=== PATIENT | female | born 1960 | race Caucasian/White ===

== ENCOUNTER → 2017-10-12 14:11 | Outpatient (CLI) | payer MEDICARE ==
[2013-11-14 08:44] VITALS: BMI 24.8
[~2017-10-12 14:11] MED LIST: BAYER CHEWABLE81 MG PO; CELEXA40 MG PO; FISH OIL 1,0001 CA1 PO; LEVOXYL50 MCG PO; MEVACOR40 MG PO; PLAVIX75 MG PO; RESTORIL15 MG PO; XANAX0.5 MG PO
== END | disposition home or self-care (01) ==
LOC: D.MAMMO 13:15
DX: Z12.31 Encounter for screening mammogram for malignant neoplasm of breast (principal)

== ENCOUNTER → 2019-01-17 08:18 | Outpatient (CLI) | payer MEDICARE ==
[2013-11-14 08:44] VITALS: BMI 24.8
== END | disposition home or self-care (01) ==
LOC: D.HCCARDIO 08:18
PROVIDERS: ATTEND Internal Medicine Cardiovascular Disease
DX: I25.119 Atherosclerotic heart disease of native coronary artery with unspecified angina pectoris (principal)

== ENCOUNTER 2019-01-25 07:39 | Outpatient (CLI) | payer MEDICARE ==
[~2019-01-25] VITALS: Ht 160 cm; Wt 59.1 kg
--- NOTE | ~2019-01-25 | HEMODYNAMI ---
PATIENT:JORI VALENTE MEDICAL RECORD: [id number] : 58 LOCATION:DTRISTEN ADMISSION DATE: 01/25/19 Generatedon:01/25/20199:47 Patient name: JORI VALENTE Patient #: [id number] SSN: : 1960 Date of study: 01/25/2019 Page: Of Hemodynamic Procedure Report Patient Data Patient Demographics Procedure consent was obtained First Name: JORI Gender: Female Last Name: AMBROSIO : 1960 [facility] Initial: KAI Age: 58 year(s) Patient #: [id number] Race: Unknown Additional ID: [id number] Contact details Address: [facility] [place] State: [place] City: [place] Zip code: [address] Past Medical History Allergies Allergen Reaction Date Comments Reported Penicillins 01/25/2019 Admission Admission Data Admission Date: 01/25/2019 Admission Time: 7:39 Height (in.): 63 BSA: 1.65 (m2) Height (cm.): 160.02 BMI: 24.27 (kg/m2) Weight (lbs.): 137 Weight (kg.): 62.14 Lab Results Lab Result Date: 01/25/2019 Lab Result Time: 0:00 Biochemistry Name Units Result Min Max BUN mg/dl 11 --(-*--)-- 7 18 Creatinine mg/dl 0.7 --(*---)-- 0.6 1.3 CBC Name Units Result Min Max Hematocrit % 41.3 -*(----)-- 42 54 Hemoglobin g/dl 14.4 --(*---)-- 13.5 17.5 Procedure Procedure Types Cath Procedure Diagnostic Procedure [facility] w/Coronaries FFR/IVUS Intra-Coronary IVUS Initial PCI Procedure Coronary Stent Coronary Stent Initial Procedure Description Procedure Date Procedure Date: 01/25/2019 Procedure Start Time: 9:28 Procedure End Time: 9:46 Procedure Staff Name Function Omid Perez MD Performing Physician Padmini Duggan RT Scrub Eliot Galvan RN Nurse Svetlana Moscoso RN Car Worker Helper Norman Helton RT Monitor Procedure Data Cath Procedure Fluoroscopy Diagnostic fluoroscopy Total fluoroscopy Time: 4.5 time: 4.5 min min Diagnostic fluoroscopy Total fluoroscopy dose: 444 dose: 444 mGy mGy Contrast Material Contrast Material Type Amount (ml) Isovue 370 73 Entry Location Entry Primary Successful Side Size Upsize Upsize Entry Closure Babcock ccessful Closure Location (Fr) 1 (Fr) 2 (Fr) Remarks Device Remarks Radial Right 6 Fr Mechanical artery Short Compression Estimated blood loss: 10 ml Diagnostic catheters Device Type Used For End Catheter Placement DIAGNOSTIC [place] 110cm 5 Procedure Fr catheter ([id number]) Procedure Complications No complications Procedure Medications Medication Administration Route Dosage 0.9% NaCl I.V. 100 ml/hr Oxygen etCO2 Nasal cannula 2 l/min Heparin Flush Bag added to field 2 bags (1000units/500ml NS) Lidocaine 2% added to field ml Radial Cocktail added to field 1 syringe (Verapamil 2mg/Nitro 400mcg/Heparin 1500units) Versed I.V. 2 mg Fentanyl I.V. 100 mcg Versed I.V. 1 mg Radial Cocktail I.A. 1 syringe (Verapamil 2mg/Nitro 400mcg/Heparin 1500units) Heparin Bolus I.V. 4000 units Hemodynamics Rest BSA: 1.65 (m2) HGB: 14.4 (g/dl) O2 Consumption: Estimated: 146.59 (ml/min) O2 Co nsumption indexed: Estimated:88.84 (ml/min/m) Heart Rate: 53 (bpm) Snapshots Pre Cath Intra NCS Post Cath Vital Signs Time Heart Resp SPO2 etCO2 NIBP Rhythm Pain Sedation Rate (ipm) (%) (mmHg) (mmHg) Status Level (bpm) 9:21:58 51 14 99 20.8 103/61(71) NSR 0 (11) 10(A) , No pain 9:26:06 56 18 99 0 89/57(77) NSR 0 (11) 10(A) , No pain 9:30:04 59 19 98 49 102/71(89) NSR 0 (11) 9(A) , No pain 9:34:05 74 19 92 37.8 105/64(80) NSR 0 (11) 9(A) , No pain 9:38:11 64 10 94 37.8 106/63(81) NSR 0 (11) 10(A) , No pain 9:42:17 65 10 96 22.2 98/62(77) NSR 0 (11) 10(A) , No pain 9:46:21 61 13 98 37.8 95/63(79) NSR 0 (11) 10(A) , No pain Medications Time Medication Route Dose Verified Delivered Reason Note s Effectiveness by by 9:22:12 0.9% NaCl I.V. 100 Eliot Eliot Per physician ml/hr Cole Galvan RN RN 9:22:22 Oxygen etCO2 2 l/min Eliot Eliot for low 02 sats Nasal Cole Galvan cannula RN RN 9:22:34 Heparin Flush added 2 bags Eliot Eliot used for Bag to Cole Galvan procedure (1000units/500ml field RN RN NS) 9:22:44 Lidocaine 2% added ml Eliot Eliot for local to Lorigan Cole anesthetic field MANJARREZ RN 9:22:57 Radial Cocktail added 1 Eliot Eliot used for (Verapamil to syringe Cole Galvan procedure 2mg/Nitro field MANJARREZ RN 400mcg/Heparin 1500units) 9:24:44 Versed I.V. 2 mg Eliot Eliot for sedation Cole Galvan RN RN 9:24:52 Fentanyl I.V. 100 mcg Eliot Eliot for sedation Cole Galvan RN RN 9:26:31 Versed I.V. 1 mg Eliot Eliot for sedation Cole Galvan RN RN 9:30:15 Radial Cocktail I.A. 1 Eliot Omid for (Verapamil syringe Cole Perez MD vasodilation 2mg/Nitro RN 400mcg/Heparin 1500units) 9:36:05 Heparin Bolus I.V. 4000 Eliot Eliot for units Cole Galvan anticoagulation RN hog driver Log Time Note 8:55:36 Eliot Galvan RN sent for patient. Start room use. 9:01:06 Signed procedure consent form obtained from patient. 9:01:08 Diagnostic Cath status Elective 9:01:09 Time tracking: Regular hours (M-F 7:00 - 5:00) 9:01:13 Plan of Care:Hemodynamics will remain stable., Cardiac rhythm will remain stable., Comfort level will be maintained., Respiratory function will remain adequate., Patient/ family verbilizes understanding of procedure., Procedure tolerated without complication., Recovers from procedure without complications.. 9:03:17 Patient Height : 63 inches 9:03:21 Patient Weight : 137 lbs 9:05:17 H&P Date Dictated: 01/06/2019 Within 30 days and on chart., H&P Addendum completed by physician on day of procedure. (MUST COMPLETE FOR ALL OUTPATIENTS). 9:08:38 Patient allergic to Penicillins 9:09: Lab Result : Creatinine 0.7 mg/dl 9:: Lab Result : BUN 11 mg/dl 9:: Lab Result : Hemoglobin 14.4 g/dl 9:: Lab Result : Hematocrit 41.3 % 9:09:35 Patient received from Pre/Post Procedure Room to CCL 1 Alert and oriented. Tansferred to table in Supine position. 9:09:37 Warm blankets applied, and ashlyn hugger turned on for patient comfort. 9:09:37 Correct patient and procedure confirmed by team. 9:09:38 ECG and BP/O2 sat monitors applied to patient. 9:20:51 Vital chart was started 9:20:52 Baseline sample Acquired. 9:21:01 Rhythm: sinus bradycardia 9:21:02 Full Disclosure recording started 9:21:04 Pre-procedure instructions explained to patient. 9:21:04 Pre-op teaching completed and patient verbalized understanding. 9:21:07 Family in patients room. 9:21:09 Patient NPO since Midnight. 9:21:18 Is the patient allergic to Iodine/contrast media? No. 9:21:21 Is patient on blood thinner?Yes 9:21:24 ACC The patient was administered the following blood thiners within the last 24 hours: ACCPlavix 9:21:26 Patient diabetic? No. 9:21:29 Previous problem with sedation/anesthesia? No ? 9:21:32 Snore? Yes 9:21:33 Sleep apnea? No 9:21:34 Deviated septum? No 9:21:35 Opens mouth fully? Yes 9:21:38 Sticks out tongue? Yes 9:21:40 Airway obstruction? No ? 9:21:42 Dentures? No ? 9:21:50 Pre procedure: right dorsailis pedis pulse 1+ Palpable, but thready & weak; easily obliterated 9::53 Modified Sanju's test Ulnar < 7 seconds 9:21:54 Patient pain scale 0/10 ?. 9:21:58 IV patent on arrival in right forearm with 0.9% NaCl at O. 9:22:00 Lab results completed and on chart. 9:22:03 Right Radial & Right Groin area was prepped with chlora-prep and draped in sterile fashion 9::05 Alarms reviewed by R. N. 9:: Sharps counted by scrub and verified by R.N. 9:22:12 0.9% NaCl 100 ml/hr I.V. was administered by Eliot Galvan RN; Per physician; :: Oxygen 2 l/min etCO2 Nasal cannula was administered by Eliot Galvan RN; for low 02 sats; 9::34 Heparin Flush Bag (1000units/500ml NS) 2 bags added to field was administered by Eliot Galvan RN; used for procedure; ::44 Lidocaine 2% ml added to field was administered by Eliot Galvan RN; for local anesthetic; ::46 --------ALL STOP TIME OUT------ ::46 Final Timeout: patient, procedure, and site verified with staff and physician. All members of the team are in agreement. 9:22:48 Right Radial & Right Groin site verified by team. 9:22:52 Maximum allowable Isovue 370 dose 300ml. Physician notified. (300ml for normal creatinines. For patients with creatinine of 1.7 or higher multiply weight(kg) x 5 divided by creatinine.) 9::57 Radial Cocktail (Verapamil 2mg/Nitro 400mcg/Heparin 1500units) 1 syringe added to field was administered by Eliot Galvan RN; used for procedure; 9::57 Fire Safety Assessment: A--An alcohol-based skin anteseptic being used preoperatively., C--Open oxygen or nitrous oxide is being used., D--An ESU, laser, or fiber-optic light is being used. 9:23:00 Physical assessment completed. ASA score P 2 - A patient with mild systemic disease as per Omid Perez MD. 9:23:03 Sedation plan: IV Moderate Sedation Medication:Versed, Fentanyl 9:24:44 Versed 2 mg I.V. was administered by Eliot Galvan RN; for sedation; 9:24:52 Fentanyl 100 mcg I.V. was administered by Eliot Galvan RN; for sedation; 9:26:31 Versed 1 mg I.V. was administered by Eliot Galvan RN; for sedation; 9:28:14 Use device set Radial Dx or PCI 9:28:16 Tegaderm 4 x 4 (1626W) opened to sterile field. 9:28:17 ACIST Manifold (42581) opened to sterile field. 9:28:18 ACIST Hand Control (67492) opened to sterile field. 9:28:19 ACIST Syringe (93812) opened to sterile field. 9:28:20 Medline Cath Pack ([id number]) opened to sterile field. 9:28:20 Bag Decanter (2002S) opened to sterile field. 9:28:20 DIAGNOSTIC WIRE .035 260cm J wire (278224) opened to sterile field. 9:28:21 MBrace Wrist Support ([id number]) opened to sterile field. 9:28:23 SHEATH 6FR Slender (63-6209) opened to sterile field. 9:28:28 Procedure started. 9:28:32 Local anesthetic to right radial artery with Lidocaine 2% by Omid Perez MD.INITIAL ACCESS ONLY 9:29:47 A 6 Fr Short sheath was inserted into the Right Radial artery 9:30:15 Radial Cocktail (Verapamil 2mg/Nitro 400mcg/Heparin 1500units) 1 syringe I.A. was administered by Omid Perez MD; for vasodilation; 9:30:30 A DIAGNOSTIC Everett 110cm 5 Fr catheter (094599) was advanced over the wire and used for Procedure. 9:31:23 LCA angiography performed. 9:32:13 Use device set LINDSAY PCI 9:32:43 RCA angiography performed. 9:32:55 CHOICE PT Extra Support 182cm wire ([id number]) opened to sterile field. 9:32:59 GUIDE 6FR XBLAD 3.5 catheter ([id number]) opened to sterile field. 9:33:06 [place] IVUS Catheter (73594U) opened to sterile field. 9:33:14 INFLATOR Merit Noé (JH6134) opened to sterile field. 9:33:40 LV angiography performed. 9:33:41 LV gram done using NUNO 9:33:45 EF : 60 % 9:33:50 Injector settings: Ml/sec: 7, Volume: 15, 9:33:57 Catheter exchanged over wire. 9:34:22 6 Fr XBLAD 3.5 guide catheter was inserted over the wire 9:35:29 CPTXS wire advanced. 9:35:48 Wire advanced across lesion. 9:36:02 IVUS catheter advanced over wire. 9:36:05 Heparin Bolus 4000 units I.V. was administered by Eliot Galvan RN; for anticoagulation; 9:37:04 IVUS pass to LAD lesion performed. 9:37:09 IVUS catheter removed over wire. 9:39:15 Place stent Inflation Number: 1 A LUPE RX 3.0 x 18 stent ([id number]) was prepped and advanced across the Mid LAD. The stent was deployed at 17 SHIMON for 0:10 (min:sec). 9:39:21 Inflation number: 2 The stent balloon was then re-inflated across the Mid LAD to 17 SHIMON for 0:10 (min:sec). 9:40:09 Stent catheter was removed intact over wire. 9:41:01 Place stent Inflation Number: 1 A LUPE RX 3.5 x 18 stent ([id number]) was prepped and advanced across the Prox LAD. The stent was deployed at 13 SHIMON for 0:10 (min:sec). 9:41:55 TR BAND Standard ([id number]) opened to sterile field. 9:41:59 Stent catheter was removed intact over wire. 9:41:59 Wire removed. 9:42:00 Guide catheter removed. 9:42:59 Sheath removed intact; hemostasis achieved with Mechanical Compression to the Right Radial artery. 9:43:10 Procedure ended.(Physican Out) 9:43:24 Fluoroscopy time 04.50 minutes. 9:43:28 Fluoroscopy dose: 444 mGy 9:43:28 Flurop Dose total: 444 9:43:33 Contrast amount:Isovue 370 73ml. 9:43:35 Sharps counted by scrub and verified by R.N. 9:43:37 TR band inflated with 11cc of air. 9:43:43 Insertion/operative site no bleeding no hematoma. 9:43:44 Post Procedure Pulses reassessed and unchanged 9:43:48 Post-procedure physical assessment completed. ASA score P 2 - A patient with mild systemic disease as per Omid Perez MD. 9:43:50 Post procedure rhythm: unchanged. 9:43:54 Estimated blood loss: 10 ml 9:43:55 Post procedure instruction explained to patient.Patient verbalizes understanding. 9:43:55 Patient needs reinforcement of post procedure teaching. 9:44:10 Procedure type changed to Cath procedure, Diagnostic procedure, LHC, LHC w/Coronaries, FFR/IVUS, Intra-Coronary IVUS Initial, PCI procedure, Coronary Stent, Coronary Stent Initial 9:44:11 Procedure and supply charges have been captured, reviewed, submitted and are correct. 9:44:13 Procedure Complication : No complications 9:46:14 Vital chart was stopped 9:46:15 See physician's report for complete and final results. 9:46:18 Report given to Pre/Post Procedure Room. 9:46:21 Patient transfered to Pre/Post Procedure Room with Stretcher. 9:46:23 Procedure ended. 9:46:23 Full Disclosure recording stopped 9:46:40 End room use (Document Last) Intervention Summary Intervention Notes Time ActionType Lesion and Equipment Used Action# Pressure Duration Attributes 9:39:15 Place stent Mid LAD LUPE RX 3.0 x 1 17 00:10 18 stent ([id number]) 9:39:21 Reinflate Mid LAD LUPE RX 3.0 x 2 17 00:10 stent 18 stent balloon ([id number]) 9:41:01 Place stent Prox LAD LUPE RX 3.5 x 1 13 00:10 18 stent ([id number]) Device Usage Item Name Manufacture Quantity Catalog Number Hospital Part Current M inimal Lot# / Charge Number Stock Stock Serial# Code Tegaderm 4 x 4 3M 1 [id number] 105674 [id number] 772362 5 (1626W) ACIST Manifold Acist 1 00420 779959 912546 533029 5 (41711) Medical Systems Inc ACIST Hand Acist 1 07119 749285 269246 265363 5 Control Medical (06797) Systems Inc ACIST Syringe Acist 1 53453 158101 222371 509685 2 0 (62918) Medical Systems Inc Medline Cath Medline 1 [id number] 584632 13369 532859 5 Pack ([id number]) Bag Decanter Microtek 1 2001S 777609 01640 200228 5 () Medical Inc. DIAGNOSTIC St Aaron 1 341933 868295 867520 879719 3 0 WIRE .035 260cm J wire (605486) MBrace Wrist Advanced 1 140-0250-00 868120 07706 980938 5 Support Vascular ([id number]) Dynamics SHEATH 6FR Terumo 1 [id number] 875684 097351 083019 5 Slender (80-1060) DIAGNOSTIC Terumo 1 40-9043 921575 652389 931856 5 [place] 110cm 5 Fr catheter (094594) CHOICE PT [place] 1 [id number] 796440 486290 798316 5 Extra Support Scientific 182cm wire (0019322S6) GUIDE 6FR Cardinal 1 [id number] 117902 386116 392278 1 0 XBLAD 3.5 Health catheter (11042945) [place] 1 69511C 385724 814624 116527 8 [place] IVUS Catheter (50824T) INFLATOR Merit Merit 1 [id number] 036282 357018 808476 1 5 [employer] Medical (IJ6294) LUPE RX 3.0 x Medtronic 1 [id number] 031460 8489456 164773 5 [id number] 18 stent ([id number]) LUPE RX 3.5 x Medtronic 1 [id number] 337471 0275547 584821 5 [id number] 18 stent ([id number]) TR BAND Terumo 1 [id number] 487741 015796 691079 4 0 Standard ([id number]) Signature Audit Spe[place] Stage Time Signature Unsigned Intra-Procedure 01/25/2019 Norman Helton 9:47:06 AM RT(R) Signatures Monitor : Nomran Helton RT Signature : Date : Time : [facility] [address] [place] [address]
[2019-01-25] MEDS ORDERED: COREG 3.1253.125 MG PO (08:01)
[2019-01-25 08:11] VITALS: BP 108/74; Ht 160 cm; Wt 59.1 kg
[2019-01-25 08:27] LABS: BASOPHILS 1.3 % (0-2); EOSINOPHILS 4.1 % (0-7); HEMATOCRIT 41.3 % (36.0-48.0); HEMOGLOBIN 14.4 g/dL (12-16); IMMATURE GRANULOCYTES 0.2 % (0-5); LYMPHOCYTES 29.8 % (15-50); MCH 32.4 pg (26.0-34.0); MCHC 34.9 g/dL (31.0-37.0); MCV 92.8 fL (80.0-100.0); MEAN PLATELET VOLUME 9.9 fL (7.4-10.4); MONOCYTES 7.5 % (2-11); NEUTROPHILS 57.1 % (40-80); PLATELET COUNT 245 10x3/uL (130-400); RBC 4.45 10x6/uL (4.00-5.40); RDW 13.1 % (11.5-14.5); WBC 6.2 10x3/uL (4.8-10.8)
[2019-01-25 08:35] LABS: CALC OSMOLALITY 277 mosm/kg (275-300); CALCIUM 8.7 mg/dL (8.5-10.1); CARBON DIOXIDE 28.2 mmol/L (21.0-32.0); CHLORIDE - SERUM 105 mmol/L (98-107); CREATININE - SERUM 0.7 mg/dL (0.6-1.3); GLUCOSE 91 mg/dL (74-106); SODIUM 140 mmol/L (136-145); UREA NITROGEN 11 mg/dL (7-18); eGFR NON AFRICAN AMERICAN > 90 mL/min (90-120)
--- NOTE | 2019-01-25 09:51 | NUR ---
PT ARRIVED BY STRETCHER. PLACED ON MONITORS. FAMILY AT BEDSIDE. VSS.
--- NOTE | 2019-01-25 10:05 | NUR ---
PT'S HEAD OF BED INC TO 30 DEGREES. GIVEN WATER TO DRINK. VSS. NO NEEDS AT THIS TIME. DENIES NAUSEA OR PAIN. RIGHT RADIAL TR BAND IN PLACE. NO BLEEDING/HEMATOMA NOTED.
--- NOTE | 2019-01-25 10:37 | NUR ---
PT RESTING COMFORTABLY. VSS. RIGHT RADIAL TR BAND IN PLACE. NO BLEEDING/HEMATOMA NOTED.
--- NOTE | 2019-01-25 11:08 | NUR ---
PT RESTING COMFORTABLY. DENIES PAIN OR NAUSEA. FAMILY AT BEDSIDE. RIGHT RADIAL TR BAND IN PLACE. NO BLEEDING OR HEMATOMA.
--- NOTE | 2019-01-25 11:40 | NUR ---
RIGHT RADIAL TR BAND IN PLACE. NO BLEEDING/HEMATOMA NOTED. VSS. FAMILY AT BEDSIDE. DR. MONTOYA ROUNDED AND SPOKE WITH PT AND PT'S FAMILY.
--- NOTE | 2019-01-25 12:05 | NUR ---
PT'S HEAD OF BED INC TO 30 DEGREES. TOLERATED WELL. RIGHT RADIAL TR BAND IN PLACE. NO BLEEDING/HEMATOMA NOTED. VSS. DENIES NAUSEA. SET UP WITH SANDWICH TRAY AND DRINK.
--- NOTE | 2019-01-25 12:45 | NUR ---
3cc OF AIR REMOVED FROM TR BAND. PT TOLERATED WELL. NO BLEEDING/HEMATOMA NOTED. DENIES NAUSEA. TOLERATED FOOD AND DRINK.
--- NOTE | 2019-01-25 13:00 | NUR ---
3cc OF AIR REMOVED FROM TR BAND. NO BLEEDING/HEMATOMA NOTED.
--- NOTE | 2019-01-25 13:20 | NUR ---
TR BAND REMOVED. DRESSING APPLIED. NO BLEEDING/HEMATOMA NOTED. PT TAKEN TO RESTROOM AND VOIDED WITHOUT DIFFICULTY. DISCUSSED DISCHARGE INSTRUCTIONS WITH PT AND PT'S FAMILY. THEY VOICED UNDERSTANDING.
--- NOTE | 2019-01-25 13:35 | NUR ---
PT TAKEN OUT TO VEHICLE BY WHEELCHAIR. NO S/S OF DISTRESS NOTED. ALL BELONGINGS AND PAPERWORK IN HAND.
--- NOTE | 2019-02-04 11:27 | OP ---
PATIENT NAME: JORI VALENTE MEDICAL RECORD: [id number] :58 LOCATION:D.CAT ADMISSION DATE: SURGEON: TASH MONTOYA MD DATE OF OPERATION: 01/25/2019 DATE OF SERVICE: 01/25/2019 PROCEDURES: 1. PTCA stent LAD. 2. Left heart catheterization. 3. Selective coronary angiography. 4. Intravascular ultrasound. INDICATION: Angina, coronary artery disease, abnormal nuclear stress test, anterior apical reversibility. PROCEDURE IN DETAIL: After informed consent was obtained and after a detailed explanation of risks, benefits as well as alternative therapies, the patient elected to proceed with angiogram and angioplasty. The right radial area was prepped and draped in normal sterile fashion. Right radial artery was cannulated via modified Seldinger technique with placement of 6-Malaysian sheath. All catheters exchanged through this sheath. FINDINGS: The left ventriculogram was performed in standard 30-degree NUNO view, reveals good cardiac wall motion throughout all segments. Overall ejection fraction estimated at 60%. SELECTIVE CORONARY ANGIOGRAPHY: 1. Left main is with no significant angiographic disease. 2. Left anterior descending has 80% stenosis proximally and 78% stenosis in the mid vessel confirmed by intravascular ultrasound. This correlates with the physiology of the nuclear stress test abnormality. 3. Left circumflex has moderate irregularities, but no flow-limiting stenosis. 4. The right coronary has previously placed stents, these are widely patent with no significant restenosis. No disease elsewise. PTCA STENT OF THE LAD: The stent used was a 3.5 x 18 mm Domingo proximally and a 3.0 x 18 mm Nebo in the mid vessel. Result was 0% residual stenosis. OVERALL IMPRESSION: Successful percutaneous transluminal coronary angioplasty stent of the left anterior descending going from 80% initial stenosis to 0% residual. TRANSINT:[id number] Voice Confirmation ID: [id number] DOCUMENT ID: [id number] TASH MONTOYA MD at 1127 CC: [id number] DICTATION DATE: 01/25/19 0945 IT COMMUNICATIONS SPECIALIST: 01/25/19 1018 [facility] CLI 01/25/19 [place] [address]
== END 2019-01-25 13:35 | disposition home or self-care (01) ==
LOC: D.CATH 07:39
PROVIDERS: ATTEND Internal Medicine Interventional Cardiology
DX: I25.119 Atherosclerotic heart disease of native coronary artery with unspecified angina pectoris (principal); R94.39 Abnormal result of other cardiovascular function study; Z01.812 Encounter for preprocedural laboratory examination; Z95.5 Presence of coronary angioplasty implant and graft
CPT/HCPCS: 93458; 92978; C9600

== ENCOUNTER 2019-06-18 10:18 | Day surgery (SDC) | payer MEDICARE ==
[~2019-06-18] VITALS: Ht 160 cm; Wt 54.5 kg
[~2019-06-18 10:18] MED LIST changes: +COREG 3.1253.125 MG PO
[2019-06-18 13:10] LABS: PROTIME 12.7 SECONDS (11.6-15.0)
[2019-06-18 13:13] LABS: BASOPHILS 0.5 % (0-2); EOSINOPHILS 0.7 % (0-7); HEMATOCRIT 44.8 % (36.0-48.0); HEMOGLOBIN 15.1 g/dL (12-16); IMMATURE GRANULOCYTES 0.2 % (0-5); LYMPHOCYTES 19.5 % (15-50); MCH 32.1 pg (26.0-34.0); MCHC 33.7 g/dL (31.0-37.0); MCV 95.3 fL (80.0-100.0); MEAN PLATELET VOLUME 10.2 fL (7.4-10.4); MONOCYTES 3.7 % (2-11); NEUTROPHILS 75.4 % (40-80); PLATELET COUNT 295 10x3/uL (130-400); RDW 13.1 % (11.5-14.5); WBC 9.6 10x3/uL (4.8-10.8)
[2019-06-18 13:42] LABS: ALBUMIN 3.4 g/dL (3.4-5.0); BILIRUBIN - TOTAL 0.28 mg/dL (0.2-1.3); CALCIUM 8.1 mg/dL (8.5-10.1); CARBON DIOXIDE 27.6 mmol/L (21.0-32.0); CREATININE - SERUM 1.4 mg/dL (0.6-1.3); POTASSIUM - SERUM 3.6 mmol/L (3.5-5.1); PROTEIN - SERUM 6.2 g/dL (6.4-8.2)
[2019-06-18 14:02] VITALS: BP 142/77; Ht 160 cm; Wt 54.5 kg
--- NOTE | 2019-06-18 14:05 | NUR ---
PATIENT ADMITTED FROM ER PRIOR TO TRANSFERING TO OR FOR REPAIR OF RIGHT INDEX AND MIDDLE FINGER FRACTURE AND LACERATION. DRESSING INTACT AND BLOOD SOAKED ON ARRIVAL. PATIENT IS ALERT AND ORIENTED WITH TROBBING PAIN REPORTED AT THIS TIME. ELEVATED RIGHT HAND WITH TWO PILLOWS TO RELIEVE THROBBING. MULTIPLE FAMILY MEMBERS AT SIDE. CL IN REACH
[2019-06-18 18:11] LABS: EOSINOPHILS 1.8 % (0-7); HEMATOCRIT 40.9 % (36.0-48.0); HEMOGLOBIN 13.6 g/dL (12-16); IMMATURE GRANULOCYTES 0.3 % (0-5); LYMPHOCYTES 38.9 % (15-50); MCH 31.5 pg (26.0-34.0); MCHC 33.3 g/dL (31.0-37.0); MCV 94.7 fL (80.0-100.0); MEAN PLATELET VOLUME 10.2 fL (7.4-10.4); MONOCYTES 6.8 % (2-11); NEUTROPHILS 51.2 % (40-80); PLATELET COUNT 280 10x3/uL (130-400); RBC 4.32 10x6/uL (4.00-5.40); WBC 7.7 10x3/uL (4.8-10.8)
[2019-06-18] MEDS ORDERED: PERCOCET 5-3251 TAB PO (18:49)
[2019-06-18] MEDS ORDERED: SULFAMETHOXAZOL1 TA2 PO (18:49)
[2019-06-18] MEDS ORDERED: VISTARIL50 MG PO (18:50)
[2019-06-18 19:26] VITALS: BP 111/89
--- NOTE | 2019-06-18 19:30 | NUR ---
RECIEVED PT FROM RECOVERY VIA STRECHER. A/O WITH NO SIGNS OF ACUTE DISTRESS. IV TO THE LT HAND AND WRIST. CLEAN DRY DRESSING TO THE RT HAND. WAS NOTIFIED THAT PT CAN GO HOME TONIGHT. WILL MONITOR VS AND UO BEFORE DISCHARGE. CONTINUE WITH PLAN OF CARE.
[2019-06-18 19:32] VITALS: BP 97/62
[2019-06-18 20:00] VITALS: BP 114/63
[2019-06-18 20:15] VITALS: BP 107/64
[2019-06-18 21:10] VITALS: BP 102/62
--- NOTE | 2019-06-18 21:10 | NUR ---
CALLED MD FOR A ONE TIME DOSE OF PAIN MED BEFORE HEADING HOME. DISCUSSED DISCHARGE INSTRUCTIONS WITH PT AND FAMILY. DENIES ANY QUESTIONS. DC IV TO THE LEFT HAND AND WRIST WITH BOTH CATHETERS INTACT. PT HAS ALSO VOIDED. DISCHARGED PT VIA WHEELCHAIR.
--- NOTE | 2019-06-19 10:09 | OP ---
PATIENT NAME: JORI MCCLENDON MEDICAL RECORD: [id number] :58 LOCATION:D.OPS ADMISSION DATE: SURGEON: ANNETTE ROSE DO DATE OF OPERATION: 06/18/2019 PROCEDURE PERFORMED: I and D of the right index finger and open reduction internal fixation of the right index proximal phalanx and the right middle finger proximal phalanx PREOPERATIVE DIAGNOSES: Open fracture of the right proximal phalanx on the index finger and transverse fracture of the middle finger proximal phalanx on the right hand that wound was closed. The index finger was open. POSTOPERATIVE DIAGNOSES: Open fracture of the right proximal phalanx on the index finger and transverse fracture of the middle finger proximal phalanx on the right hand that wound was closed. The index finger was open. SURGEON: Annette Rose DO INDICATIONS: Ms. Mcclendon is a 58-year-old female who was walking ____ and had a crossbow snap onto her hand fracturing and lacerating her right index finger as well as the middle finger. She immediately had pain and was brought to the ER, seen to have an open fracture and given digital block. She said she was flexing and extending her finger well after it happened, but there was concern where the laceration was that she may have extensor tendon tear or laceration. She was consented for possible repair as well. She was informed of the risks including infection, bleeding, damage to nerves and vessels, loss of sensation, need for further surgery, malunion, nonunion, malrotation of the digit, and she signed the consent. DESCRIPTION OF PROCEDURE: The patient was taken to the operative suite, laid in supine position, given general anesthetic and LMA was placed. She was given 2 grams of Ancef in the ER and tetanus and another gram of Ancef prior to starting the surgery. A timeout was performed, everyone was in agreement with the correct side, site, patient, and procedure. We then began by irrigating the laceration over the index finger which was approximately 4 cm in length from the dorsal aspect to the radial aspect. The extensor tendon was intact. I was assisted by Erik Peres, certified sampler first. The patient was oozing a lot taking Plavix and she had not obviously been off of it. She knew that would happen. After the wound had been irrigated and the extensor tendon inspected, I then attempted to pin with K wires, first 0.035 and 0.045. The fracture both of the index and of the long or middle finger was unsuccessful. The long finger due the transverse nature of it could not get the two K-wires passed across the fracture site. The index was simply too comminuted and anytime the K-wire would pass, the fracture displaced. At that time, I decided to do the ORIF. Medartis handset was used. The plate was then placed on the index finger and the laceration was then extended to get exposure more proximal. The first plate was used but was big enough and then a second plate was used on the index finger getting fixation more proximal as needed. There was a split proximally and distally and then mid shaft of the proximal phalanx of the index finger. Once the plate was secured in place, it was confirmed to be in good position on AP and lateral. The screws were appropriate length. An Esmarch had been used during this time to exsanguinate the right hand and it was probably on for about 30 minutes before it lost the use of venous tourniquet. Attention was then drawn to the proximal phalanx of the middle finger. Incision was made directly OPERATIVE REPORT [id number] JORI MCCLENDON over the extensor tendon. Careful dissection was made down splitting the extensor tendon down to the fracture site. A plate was then placed, and once it was in appropriate position, four screws were put in four hole plate. Then, the whole hand was irrigated and then the extensor tendon was brought back together loosely with 4-0 Ethibond in both knee. The same approach was used for the index and middle finger and the extensor tendon was reapproximated that way. The skin was then closed. The sites were then irrigated again. The skin was closed with 4-0 nylon in horizontal mattress and simple sutures. She was then dressed with Adaptic, 4 x 4s, and tube gauze. She was awakened and taken to recovery in stable condition. Blood loss approximately 400 mL. COMPLICATIONS: None. Prior to the dressing being applied, digital blocks were done with 0.5% Marcaine with epinephrine on the index and middle finger. TRANSINT:[id number] Voice Confirmation ID: [id number] DOCUMENT ID: [id number] ANNETTE ROSE DO at 1009 CC: [id number] DICTATION DATE: 06/18/19 1848 [place] [employer] GAUGER: 06/19/19 0119 [facility] [place] 06/18/19 [facility] [address] [place] [address]
== END 2019-06-18 21:10 | disposition home or self-care (01) ==
LOC: D.OPS 10:18 → D.MS 10:18 → D.ER 10:18 → D.MS 12:03 → EDSTATUS 12:20 → D.OPS 21:10
PROVIDERS: Anesthesiology; Family Medicine; ATTEND Orthopaedic Surgery
DX: S62.610B Displaced fracture of proximal phalanx of right index finger, initial encounter for open fracture (principal); S62.612A Displaced fracture of proximal phalanx of right middle finger, initial encounter for closed fracture; X58.XXXA Exposure to other specified factors, initial encounter

== ENCOUNTER 2021-01-01 14:30 | Outpatient (CLI) | payer OTHER ==
[2019-06-18 14:02] VITALS: BMI 21.3
[~2021-01-01 14:30] MED LIST changes: +PERCOCET 5-3251 TAB PO; +SULFAMETHOXAZOL1 TA2 PO; +VISTARIL50 MG PO
== END 2021-01-01 23:59 | disposition home or self-care (01) ==
LOC: D.MAMMO 14:30
PROVIDERS: ATTEND Family Medicine
DX: Z12.31 Encounter for screening mammogram for malignant neoplasm of breast (principal)